=== PATIENT | female | born 1945 | race Caucasian/White ===

== ENCOUNTER → 2018-01-29 19:13 | Outpatient (CLI) | payer MEDICARE, BC | END | disposition home or self-care (01) | LOC: D.MAMMO 11:00 | DX: Z12.31 Encounter for screening mammogram for malignant neoplasm of breast (principal) ==

== ENCOUNTER 2018-07-14 20:15 | Observation (INO) | payer MEDICARE, BC ==
[~2018-07-14] VITALS: Ht 162.6 cm; Wt 72.3 kg
[2018-07-14] MEDS ORDERED: AVALIDE 150-12.1 TA1 PO (20:24)
[2018-07-14] MEDS ORDERED: PEPCID20 MG PO (20:25)
[2018-07-14] MEDS ORDERED: VITAMIN B-122500 MCG PO (20:25)
[2018-07-14] MEDS ORDERED: BAYER CHEWABLE81 MG PO (20:25)
[2018-07-14] MEDS ORDERED: SYNTHROID75 MCG PO (20:25)
[2018-07-14] MEDS ORDERED: METAMUCIL1042 GM PO (20:26)
[2018-07-14] MEDS ORDERED: VITAMIN D31000 UNIT PO (20:26)
[2018-07-14] MEDS ORDERED: VALTREX1000 MG PO (20:26)
[2018-07-14] MEDS ORDERED: BIOTIN5 MG PO (20:27)
[2018-07-14 21:14] LABS: BASOPHILS 0.2 % (0-2); EOSINOPHILS 2.3 % (0-7); HEMATOCRIT 40.1 % (36.0-48.0); HEMOGLOBIN 13.6 g/dL (12-16); IMMATURE GRANULOCYTES 0.4 % (0-5); MCH 30.5 pg (26.0-34.0); MCHC 33.9 g/dL (31.0-37.0); MCV 89.9 fL (80.0-100.0); MEAN PLATELET VOLUME 10.9 fL (7.4-10.4); MONOCYTES 9.4 % (2-11); NEUTROPHILS 78.7 % (40-80); PLATELET COUNT 183 10x3/uL (130-400); RBC 4.46 10x6/uL (4.00-5.40); RDW 12.9 % (11.5-14.5); WBC 16.4 10x3/uL (4.8-10.8)
[2018-07-14 21:21] LABS: ALBUMIN 3.7 g/dL (3.4-5.0); ALKALINE PHOSPHATASE 80 U/L (46-116); ALT (SGPT) 17 U/L (10-68); BILIRUBIN - TOTAL 0.46 mg/dL (0.2-1.3); CALC OSMOLALITY 271 mosm/kg (275-300); CALCIUM 9.1 mg/dL (8.5-10.1); CARBON DIOXIDE 30.1 mmol/L (21.0-32.0); CHLORIDE - SERUM 97 mmol/L (98-107); CREATININE - SERUM 1.1 mg/dL (0.6-1.3); GLUCOSE 103 mg/dL (74-106); POTASSIUM - SERUM 3.5 mmol/L (3.5-5.1); PROTEIN - SERUM 7.7 g/dL (6.4-8.2); SODIUM 133 mmol/L (136-145); UREA NITROGEN 29 mg/dL (7-18); eGFR NON AFRICAN AMERICAN 52 mL/min (90-120)
[2018-07-14 21:32] LABS: AMYLASE - SERUM 81 U/L (25-115); CKMB 1.2 U/L (0.0-3.6); CREATINE KINASE 87 UL (21-215); LIPASE 169 U/L (73-393)
[2018-07-14 21:35] LABS: TROPONIN-I < 0.017 ng/mL (0.000-0.060)
[2018-07-14 22:31] LABS: APPEARANCE CLEAR (CLEAR); BILIRUBIN NEGATIVE (NEGATIVE); COLOR YELLOW (YELLOW); GLUCOSE NEGATIVE (NEGATIVE); KETONE NEGATIVE (NEGATIVE); NITRITE NEGATIVE (NEGATIVE); PROTEIN NEGATIVE (NEGATIVE); SPECIFIC GRAVITY 1.015 (1.005-1.020); UROBILINOGEN NORMAL (NORMAL)
[2018-07-14 22:32] LABS: EPITHELIAL CELLS 0-5 /hpf (0-5); RED CELLS - URINE 0-5 /hpf (0-5); WHITE CELLS - URINE 0-5 /hpf (0-5)
[2018-07-14 22:33] LABS: BACTERIA FEW /hpf (NONE SEEN)
[2018-07-15 01:00] LABS: CREATINE KINASE 79 UL (21-215); TROPONIN-I < 0.017 ng/mL (0.000-0.060)
[2018-07-15 05:05] VITALS: BP 113/60
[2018-07-15 05:38] VITALS: BP 113/60
[2018-07-15 07:27] LABS: CREATINE KINASE 72 UL (21-215); TROPONIN-I < 0.017 ng/mL (0.000-0.060)
[2018-07-15 07:28] VITALS: Ht 162.6 cm; Wt 72.3 kg
[2018-07-15 13:39] LABS: CKMB 0.8 U/L (0.0-3.6); CREATINE KINASE 78 UL (21-215); TROPONIN-I < 0.017 ng/mL (0.000-0.060)
[2018-07-15 14:48] VITALS: BP 122/62
[2018-07-15 19:07] LABS: CKMB 0.8 U/L (0.0-3.6); CREATINE KINASE 86 UL (21-215); TROPONIN-I < 0.017 ng/mL (0.000-0.060)
[2018-07-15 20:00] VITALS: BP 109/67
[2018-07-15 22:52] LABS: APPEARANCE CLEAR (CLEAR); BILIRUBIN NEGATIVE (NEGATIVE); COLOR YELLOW (YELLOW); GLUCOSE NEGATIVE (NEGATIVE); KETONE NEGATIVE (NEGATIVE); NITRITE NEGATIVE (NEGATIVE); PROTEIN NEGATIVE (NEGATIVE); SPECIFIC GRAVITY 1.015 (1.005-1.020); UROBILINOGEN NORMAL (NORMAL)
[2018-07-15 22:53] LABS: BACTERIA MODERATE /hpf (NONE SEEN); EPITHELIAL CELLS 0-5 /hpf (0-5); RED CELLS - URINE 0-5 /hpf (0-5)
[2018-07-16 04:00] VITALS: BP 124/70
[2018-07-16 04:30] LABS: BASOPHILS 0.6 % (0-2); EOSINOPHILS 6.8 % (0-7); HEMATOCRIT 34.3 % (36.0-48.0); HEMOGLOBIN 11.6 g/dL (12-16); IMMATURE GRANULOCYTES 0.2 % (0-5); LYMPHOCYTES 35.4 % (15-50); MCH 30.4 pg (26.0-34.0); MCHC 33.8 g/dL (31.0-37.0); MEAN PLATELET VOLUME 10.6 fL (7.4-10.4); MONOCYTES 10.7 % (2-11); NEUTROPHILS 46.3 % (40-80); PLATELET COUNT 170 10x3/uL (130-400); RBC 3.81 10x6/uL (4.00-5.40); RDW 13.2 % (11.5-14.5)
[2018-07-16 04:31] LABS: WBC 6.2 10x3/uL (4.8-10.8)
[2018-07-16 04:59] LABS: BILIRUBIN - TOTAL 0.34 mg/dL (0.2-1.3); CALCIUM 7.6 mg/dL (8.5-10.1); CARBON DIOXIDE 27.8 mmol/L (21.0-32.0); MAGNESIUM - SERUM 1.6 mg/dL (1.8-2.4); PHOSPHOROUS 2.7 mg/dL (2.5-4.9); POTASSIUM - SERUM 3.8 mmol/L (3.5-5.1); PROTEIN - SERUM 5.9 g/dL (6.4-8.2); T4 THYROXIN - FREE 0.93 ng/dL (0.76-1.46); THYROID STIMULATING HORMONE 3.55 uIU/mL (0.36-3.74)
[2018-07-16 05:06] LABS: ALBUMIN 2.6 g/dL (3.4-5.0); CREATININE - SERUM 0.8 mg/dL (0.6-1.3)
[2018-07-16] MEDS ORDERED: MACROBID100 MG PO (07:04)
[2018-07-16 09:03] VITALS: BP 124/67
== END 2018-07-16 10:36 | disposition home or self-care (01) ==
LOC: D.ER 20:15 → D.EDHOLD 07-15 02:01 → OBSVTIME 07-15 02:01 → D.M2 07-15 04:14
PROVIDERS: Family Medicine
DX: R55 Syncope and collapse (principal); R11.10 Vomiting, unspecified; N39.0 Urinary tract infection, site not specified; E03.9 Hypothyroidism, unspecified

== ENCOUNTER 2019-05-24 08:00 | Outpatient (CLI) | payer MEDICARE, BC ==
[~2019-05-24 08:00] MED LIST: AVALIDE 150-12.1 TA1 PO; BAYER CHEWABLE81 MG PO; BIOTIN5 MG PO; MACROBID100 MG PO; METAMUCIL1042 GM PO; PEPCID20 MG PO; SYNTHROID75 MCG PO; VALTREX1000 MG PO; VITAMIN B-122500 MCG PO; VITAMIN D31000 UNIT PO
== END 2019-05-24 23:59 | disposition home or self-care (01) ==
LOC: D.MAMMO 08:00
PROVIDERS: ATTEND Family Medicine
DX: Z12.31 Encounter for screening mammogram for malignant neoplasm of breast (principal)

== ENCOUNTER 2021-05-04 13:30 | Outpatient (CLI) | payer MEDICARE, BC | END 2021-05-04 23:59 | disposition home or self-care (01) | LOC: D.MAMMO 13:30 | PROVIDERS: ATTEND Family Medicine | DX: Z12.31 Encounter for screening mammogram for malignant neoplasm of breast (principal) ==